=== PATIENT | male | born 1935 | race Caucasian/White ===

== ENCOUNTER 2018-09-09 20:48 | Emergency (ER) | payer OTHER, MEDICARE ==
[~2018-09-09] VITALS: Ht 182.9 cm; Wt 86.2 kg
[2018-09-09 20:55] VITALS: BP_SYST 155
[2018-09-09] MEDS ORDERED: ONDANSETRON HCL 4 MG/2 ML VIAL IVP ONE (21:30)
[2018-09-09] MEDS ORDERED: NACL 0.9% 1,000 ML IV ONE (21:30)
[2018-09-09 22:14] LABS: ANION GAP 8 (5-15); CALCIUM 9.5 mg/dL (8.4-11.0); CHLORIDE 98 mmol/L (98-107); CREATININE 1.32 mg/dL (0.55-1.30); GLUCOSE 197 mg/dL (70-99); POTASSIUM 3.6 mmol/L (3.5-5.1); SODIUM SERUM 133 mmol/L (136-145); UREA NITROGEN, BLOOD 19 mg/dL (8-21)
[2018-09-09 22:30] LABS: ALANINE AMINOTRANSFERASE 24 U/L (12-78); ALBUMIN 3.3 g/dL (3.4-4.8); ASPARTATE AMINOTRANSFERASE 22 U/L (10-37)
[2018-09-09 22:35] LABS: HEMOGLOBIN 14.5 g/dL (14.0-18.0); RED BLOOD CELL COUNT(AUTO) 5.22 MIL/uL (4.2-6.2); WHITE BLOOD COUNT (AUTO) 12.5 K/uL (4.8-10.8)
[2018-09-09 22:36] LABS: BASOPHILS % (AUTO) 0.5 % (0.0-2.0); EOSINOPHILS % (AUTO) 0.4 % (0.0-4.0); LYMPHOCYTES % (AUTO) 2.5 % (20.5-51.5); MEAN CORPUSCULAR HEMOGLOBIN 28 pg (27-31); MEAN CORPUSCULAR HGB CONC 32 % (32-36); MEAN CORPUSCULAR VOLUME 86 fL (79.0-98.0); MONOCYTES % (AUTO) 6.5 % (1.7-9.3); NEUTROPHILS # (AUTO) 11.3 K/uL (1.8-7.7); NEUTROPHILS % (AUTO) 90.1 % (40.0-70.0); PLATELET COUNT (AUTO) 155 K/uL (130-430); RED CELL DISTRIBUTION WIDTH 16.8 % (9.0-15.0)
[2018-09-09 22:37] LABS: BASOPHILS # (AUTO) 0.1 K/uL (0.0-0.2); LYMPHOCYTES # (AUTO) 0.3 K/uL (1.0-5.5); MONOCYTES # (AUTO) 0.8 K/uL (0.0-1.0)
[2018-09-09] MEDS ORDERED: SITA50TA3 PO (23:01)
[2018-09-09] MEDS ORDERED: APIX2.5T PO (23:01)
[2018-09-09] MEDS ORDERED: ESCI20TA PO (23:01)
[2018-09-09] MEDS ORDERED: FINA5TAB3 PO (23:01)
[2018-09-09] MEDS ORDERED: OMEP40CA33 PO (23:01)
[2018-09-09] MEDS ORDERED: LIP20 PO (23:01)
[2018-09-09] MEDS ORDERED: TAMS-11 PO (23:01)
[2018-09-09] MEDS ORDERED: GLIM2TAB2 PO (23:01)
[2018-09-09] MEDS ORDERED: HYDR12.55 PO (23:01)
[2018-09-09] MEDS ORDERED: NEU400 PO (23:01)
[2018-09-10] MEDS ORDERED: cefTRIAXone 1 GM IVPB PREMIX 50 ML IV ONE (00:15)
[2018-09-10 00:18] LABS: BILIRUBIN,URINE NEGATIVE (NEGATIVE); BLOOD, URINE 1+ (NEGATIVE); CLARITY/URINE CLEAR (CLEAR); COLOR,URINE YELLOW (YELLOW); GLUCOSE,URINE TRACE (NEGATIVE); KETONES,URINE 1+ (NEGATIVE); LEUKOCYTE ESTERASE ,URINE 1+ (NEGATIVE); NITRITE, URINE NEGATIVE (NEGATIVE); PROTEIN URINE NEGATIVE (NEGATIVE); UROBILINOGEN,URINE 0.2 (0.2-1.0)
[2018-09-10 00:28] LABS: BACTERIA,URINE FEW /HPF (None Seen)
== END 2018-09-10 01:40 | disposition left against medical advice (07) ==
LOC: SED 20:48
DX: N39.0 Urinary tract infection, site not specified (principal); E11.9 Type 2 diabetes mellitus without complications; I10 Essential (primary) hypertension; Z79.899 Other long term (current) drug therapy
CPT/HCPCS: 36415; 71045; 74176; 80053; 81000; 83605; 84484; 85025; 87040; 96361; 96365; 96375; 99284; J0696; J2405; J7030